=== PATIENT | female | born 1965 | race Caucasian/White ===

== ENCOUNTER 2017-01-04 09:00 | Inpatient (IN) | payer BC ==
[2017-01-01 15:41] LABS: WBC (NOT ORDERED) (RFLEX) 0 (0-5)
[2017-01-01 16:40] LABS: BASOPHILS 0.3 %; BASOPHILS ABSOLUTE 0.03 10/3/uL (0.0-0.16); EOSINOPHILS ABSOLUTE 0.09 10/3/uL (0.0-0.53); IMMATURE GRANULOCYTES 0.1 %; IMMATURE GRANULOCYTES ABSOLUTE 0.01 10/3/uL (0.0-0.11); LYMPHOCYTES 20.1 %; LYMPHOCYTES ABSOLUTE 1.87 10/3/uL (0.67-4.30); MEAN CORPUS HGB CONC 32.3 g/dL (32.0-36.0); MEAN CORPUSCULAR HEMOGLOB 29.1 pg (26.0-34.0); MEAN PLATELET VOLUME 11.1 fL (9.2-13.0); MONOCYTES 9.4 %; MONOCYTES ABSOLUTE 0.87 10/3/uL (0.21-1.20); NEUTROPHILS 69.1 %; NEUTROPHILS ABSOLUTE 6.42 10/3/uL (2.02-8.40); PLATELET COUNT 272 10/3/uL (150-400); WHITE BLOOD CELLS 9.3 10/3/uL (4.5-10.5)
[2017-01-01 16:43] LABS: HEMATOCRIT 39.9 % (36.0-48.0); HEMOGLOBIN 12.9 g/dL (12.0-16.0); MANUAL DIFF NO %; MEAN CORPUSCULAR VOLUME 89.9 fL (80-100); RED CELL COUNT 4.44 10/6/uL (4.0-5.6)
[2017-01-01 16:48] LABS: PARTIAL THROMBO TIME 26.2 SEC (22.5-37.2)
[2017-01-01 16:52] LABS: ALBUMIN 3.3 G/DL (3.5-5.0); CALCIUM, SERUM 8.7 MG/DL (8.5-10.4); CHLORIDE, SERUM 105 MMOL/L (96-112); CREATININE 0.71 MG/DL (0.55-1.02); GFR AFRICAN AMERICAN 113 ML/MIN (>=60); GFR NON AFRICAN AMERICAN 97 ML/MIN (>=60); GLOBULIN 3.4 G/DL (2.5-4.1); GLUCOSE, SERUM 86 MG/DL (60-99); POTASSIUM, SERUM 3.5 MMOL/L (3.5-5.3); SGOT(AST) 9 U/L (5-40); SGPT(ALT) 19 U/L (5-65); SODIUM, SERUM 143 MMOL/L (135-148); TOTAL BILIRUBIN 0.2 MG/DL (0-1.2); TOTAL PROTEIN 6.7 G/DL (6.0-8.5)
[2017-01-01 16:53] LABS: ALKALINE PHOSPHATASE 77 U/L (45-117); BUN (BLOOD UREA NITROGEN) 10 MG/DL (6-23); CO2 (CARBON DIOXIDE) 32 MMOL/L (24-34)
[2017-01-01 16:55] LABS: PFA (COL/EPI) 123 SEC (72-180)
[2017-01-01 16:56] LABS: ASCORBIC ACID (UR NOT ORDER) NEG (NEG); BILIRUBIN, URINE NEGATIVE (NEG); KETONE, URINE NEGATIVE (NEG); LEUKOCYTE ESTERASE(NOT OR NEG (NEG)
--- NOTE | ~2017-01-04 | OP ---
Record Of Operation [facility] [address] [place]. [address] NAME: LEATHA SEQUEIRA : 61 STATUS : ADM IN PAT#: [id number] AGE: 51 ADM/REG DATE : 01/04/17 MR#: [id number] REPORT SERV DATE: 01/04/17 DICTATED BY: QAMAR VIEIRA DATE: 01/04/17 REPORT STATUS : Draft TRANSCRIBED BY: MODL DATE: 01/04/17 DATE OF PROCEDURE: 01/04/2017 PREOPERATIVE DIAGNOSIS: History of bilateral mastectomies for breast cancer, for reconstruction. POSTOPERATIVE DIAGNOSIS: History of bilateral mastectomies for breast cancer, for reconstruction. PROCEDURE: Bilateral breast reconstruction using tissue expanders and AlloDerm. The tissue expanders are style 133, SX-12 serial number on the right is [id number] and on the left it is [id number] and the AlloDerm is contour medium perforated thick and the reference number [id number] on the right and the lot number on the right [id number], and on the left the lot number is [id number]. SURGEON: Qamar Vieira M.D. ANESTHESIA: General endotracheal. BRIEF HISTORY: This is a 51-year-old healthy white female referred by Dr. Abimael Dowling for breast reconstruction following mastectomies. She and I discussed the different issues and options, procedures, risks, and benefits. She seemed comfortable, had no unanswered questions, wished to proceed. SUMMARY OF PROCEDURE: Patient was taken to the operating suite by Dr. Dowling, where he performed bilateral mastectomies through horizontally elliptical incisions. The patient was hemodynamically stable and it was felt that reconstruction could be implemented. She was re prepped and draped and evaluation of the tissues showed the tissues to be healthy and viable. It was felt that tissue expanders with the use of AlloDerm would be most appropriate, thus these were opened and soaked appropriately on the back table in preparation of use. The AlloDerm on each side was sutured into position along the inferior edge of the pectoralis major muscle, along the inframammary fold, and along the anterior axillary line using interrupted 2-0 Vicryl sutures. The tissue expanders which were partially deflated were placed into this pocket prior to completion of our closure, where at that time were completely deflated of air and re-inflated with 150 mL of sterile saline on each side. The size, shape, and asymmetry and the fit appeared to be quite reasonable on each side and bleeding was controlled using electrocautery. Each pocket was irrigated with normal saline as well as a diluted Betadine solution. Two 15 round Ashish drains were placed into each side and brought through a separate stab incision along the anterior axillary line. The drains were secured using interrupted 2-0 silk sutures. The skin which was an ellipse in nature was reexcised with a 1 to 2 mm gross margins circumferentially to ensure viability and closure was then performed using interrupted 3-0 Vicryl in the subcutaneous tissues followed by running 4-0 Monocryl subcuticular for exact skin edge approximation. No undue tension was noted on our suture closure thus 150 mL was felt to be adequate for this patient. Dressings were applied, and the patient was awakened and taken to recovery room in satisfactory condition. Estimated blood loss less than 25 mL, there were no complications. Record Of Operation [address] [address] NAME: LEATHA SEQUEIRA : 61 STATUS : ADM IN PAT#: [id number] AGE: 51 ADM/REG DATE : 01/04/17 MR#: [id number] REPORT SERV DATE: 01/04/17 DICTATED BY: QAMAR VIEIRA DATE: 01/04/17 REPORT STATUS : Draft TRANSCRIBED BY: CELE DATE: 01/04/17 Counts were correct. ML/MODL Qamar Vieira M.D. / [id number] CC: Abimael Dowling Jr., M.D.
--- NOTE | ~2017-01-04 | OP ---
Record Of Operation [facility] [address] [place]. [address] NAME: LEATHA SEQUEIRA : 61 STATUS : ADM IN PAT#: [id number] AGE: 51 ADM/REG DATE : 01/04/17 MR#: [id number] REPORT SERV DATE: 01/04/17 DICTATED BY: ELIEZER MEYERS JR. DATE: 01/04/17 REPORT STATUS : Draft TRANSCRIBED BY: CELE DATE: 01/04/17 DATE OF PROCEDURE: 01/04/2017 SURGEON: Eliezer Meyers M.D. DOUGHNUT DOUGH MIXER: Wilfredo Sanchez. PROCEDURE: Bilateral simple mastectomy. PREOPERATIVE DIAGNOSIS: Ductal carcinoma in situ of the right breast. POSTOPERATIVE DIAGNOSIS: Ductal carcinoma in situ of the right breast. ANESTHESIA: General. INDICATIONS: The patient has history of melanoma. She had a mammogram, and imaging showed calcifications, stereotactic biopsy showed ductal carcinoma in situ. There were extensive calcifications over the lower inner quadrant of the left and right breast. The patient elected bilateral mastectomy for definitive local treatment. FINDINGS: There were no gross abnormal findings except for the presence of the biopsy scar in the right breast. Final diagnosis deferred to permanent section. DESCRIPTION OF PROCEDURE: With adequate general anesthesia, the patient was placed supine position. The right and left breasts were prepped and draped sterilely. Elliptical incisions were outlined on both sides complex on the right, the previous core biopsy site. Incisions were made and deepened through the dermis. Flaps raised superiorly, medially, and inferiorly to encompass the breast tissue and laterally out to the latissimus dorsi muscle. The breast was then taken from the underlying pectoralis major and serratus muscle inferolaterally. Dissection carried out on the pectoralis major muscle and the minor muscle clavipectoral fascia was incised and the axilla was entered. A portion of lower axilla was removed with the specimen, each side. These were submitted to pathology for appropriate orientation. Bleeders controlled with electrocautery. The wound was irrigated with sterile water. Hemostasis was assured. At this point, Dr. Hollingsworth in the operating room, was performed the reconstruction which is dictated separately. ESTIMATED BLOOD LOSS: mL. JG/MODL Eliezer Meyers Jr., M.D. Record Of Operation [address] [place] [place] [address] NAME: LEATHA SEQUEIRA : 61 STATUS : ADM IN PAT#: [id number] AGE: 51 ADM/REG DATE : 01/04/17 MR#: [id number] REPORT SERV DATE: 01/04/17 DICTATED BY: ELIEZER MEYERS JR. DATE: 01/04/17 REPORT STATUS : Draft TRANSCRIBED BY: CELE DATE: 01/04/17 / [id number] CC: Eliezer Meyers Jr., M.D.
[~2017-01-04 09:00] MED LIST: *DENIES; ACETSUP650 PR; SENOKOTS PO; T PO
[2017-01-05] MEDS ORDERED: DIL4TAB PO (14:30)
[2017-01-05] MEDS ORDERED: PR25 PO (14:31)
[2017-01-05] MEDS ORDERED: K500 PO (14:31)
[2017-01-05] MEDS ORDERED: V5 PO (14:32)
== END 2017-01-05 16:58 | disposition home or self-care (01) | DRG 583 ==
LOC: SDC/OF 09:00 → 5SO 19:48
PROVIDERS: Plastic Surgery; Specialist
PROC: 0HTV0ZZ Resection of Bilateral Breast, Open Approach (ICD-10-PCS; principal; 2017-01-04 11:15)
PROC: 0HHV0NZ Insertion of Tissue Expander into Bilateral Breast, Open Approach (ICD-10-PCS; 2017-01-04 11:15)
DX: D05.11 Intraductal carcinoma in situ of right breast (principal); I10 Essential (primary) hypertension; Z79.899 Other long term (current) drug therapy; Z87.891 Personal history of nicotine dependence
CPT/HCPCS: 36415; 71020; 80053; 81001; 84703; 85025; 85576; 85610; 85730; 86850; 86900; 86901; 88307; 93005; A9270-GY; C1789; J0690; J2250; J2270; J2370; J2405; J2550; J2710; J3010; Q4116